=== PATIENT | female | born 1990 | race Caucasian/White ===

== ENCOUNTER 2018-03-12 16:09 | Emergency (ER) | payer BC ==
[2018-03-12] MEDS ORDERED: LOPERAMIDE 2 MG CAPSULE PO STA ×2 (16:27→17:51)
[2018-03-12] MEDS ORDERED: SODIUM CHLORIDE 0.9% 1,000 ML IV ONE (16:27)
[2018-03-12] MEDS ORDERED: ONDANSETRON 4 MG/2 ML VIAL IVP STA (16:27)
[2018-03-12] MEDS ORDERED: KETOROLAC 60 MG/2 ML VIAL IVP STA (16:27)
--- NOTE | 2018-03-12 16:29 | ED Physician Documentation ---
PD HPI NVD - Stated complaint Stated Complaint: N/V ABD PX - History obtained from History obtained from: Patient, Family - History of Present Illness Timing - onset: Today (She got yesterday. She did not drink too much last night. She woke today with vomiting and diarrhea and stomach cramps. The vomiting is much worse than the diarrhea. Her sister had something similar and she was exposed to her about 5 days ago. No fevers. No recent travel.) Review of Systems Constitutional: denies: Fever Throat: denies: Dental pain / toothache, Sore throat Cardiac: denies: Chest pain / pressure, Palpitations Respiratory: denies: Dyspnea PD PAST MEDICAL HISTORY - Present Medications Home Medications: Ambulatory Orders Medication Instructions Recorded Confirmed Levothyroxine Sodium [Synthroid] 75 mcg PO 03/12/18 Liothyronine [Cytomel] 5 mcg PO QDAC 03/12/18 03/12/18 Loperamide [Imodium] 2 mg PO QID PRN #10 capsule 03/12/18 Ondansetron Odt [Zofran] 4 mg TL Q6H PRN #10 tablet 03/12/18 - Allergies Allergies/Adverse Reactions: Allergies Allergy/AdvReac Type Severity Reaction Status Date / Time No Known Drug Allergies Allergy Verified 03/12/18 16:29 PD ED PE NORMAL - Vitals Vital signs reviewed: Yes - General General: Alert and oriented X 3, No acute distress - HEENT HEENT: Pharynx benign - Cardiac Cardiac: RRR, No murmur - Respiratory Respiratory: No respiratory distress, Clear bilaterally - Abdomen Abdomen: Soft, Non tender - Neuro Neuro: Alert and oriented X 3, Normal speech Results - Vitals Vitals: Vital Signs - 24 hr 03/12/18 16:21 Temperature 36.8 C Heart Rate 60 Respiratory 16 Rate Blood Pressure 100/71 O2 Saturation 100 Oxygen O2 Source Room air - Labs Labs: Laboratory Tests 03/12/18 03/12/18 03/12/18 16:30 16:30 17:30 WBC 7.7 RBC 4.82 Hgb 15.0 Hct 43.0 MCV 89.2 MCH 31.2 H MCHC 35.0 RDW 12.9 Plt Count 163 MPV 8.8 Neut # (Auto) 6.9 H Lymph # (Auto) 0.4 L [place] # (Auto) 0.3 Eos # (Auto) 0.0 Baso # (Auto) 0.0 Absolute Nucleated RBC 0.00 Nucleated RBC % 0.0 Sodium 134 L Potassium 3.4 L Chloride 101 Carbon Dioxide 24 Anion Gap 9.0 BUN 14 Creatinine 0.6 Estimated GFR (MDRD) 119 Glucose 106 H Calcium 9.0 Total Bilirubin 1.2 H AST 26 ALT 23 Alkaline Phosphatase 52 Total Protein 7.0 Albumin 4.4 Globulin 2.6 Albumin/Globulin Ratio 1.7 Lipase 33 Urine Color YELLOW Urine Clarity CLEAR Urine pH 8.0 H Ur Specific [place] 1.015 Urine Protein NEGATIVE Urine Glucose (UA) NEGATIVE Urine Ketones 40 H Urine Occult Blood NEGATIVE Urine Nitrite NEGATIVE Urine Bilirubin NEGATIVE Urine Urobilinogen 1 (NORMAL) Ur Leukocyte Esterase NEGATIVE Ur Microscopic Review NOT INDICATED Urine Culture Comments NOT INDICATED Urine HCG, Qual NEGATIVE PD MEDICAL DECISION MAKING - ED course ED course: 27-year-old woman with what sounds like clinical gastroenteritis. She has mild hyper orally and after the administration of IV fluids, Zofran, and Imodium she is feeling 100% better. - Sepsis Event Vital Signs: Vital Signs - 24 hr 03/12/18 16:21 Temperature 36.8 C Heart Rate 60 Respiratory 16 Rate Blood Pressure 100/71 O2 Saturation 100 Oxygen O2 Source Room air Departure - Departure Disposition: 01 Home, Self Care Clinical Impression: Gastroenteritis Condition: Good Record reviewed to determine appropriate education?: Yes Instructions: ED Gastroenteritis Viral Prescriptions: Loperamide [Imodium] 2 mg PO QID PRN #10 capsule PRN Reason: Diarrhea Ondansetron Odt [Zofran] 4 mg TL Q6H PRN #10 tablet PRN Reason: Nausea / Vomiting Comments: As discussed, you should be better in 12-18 hours. If worsening or if not better in that timeframe please return for reevaluation.
[2018-03-12 16:42] LABS: BASOPHILS % (AUTO) 0.3 %; EOSINOPHILS % (AUTO) 0.4 %; LYMPHOCYTES # (AUTO) 0.4 10^3/uL (1.5-3.5); LYMPHOCYTES % (AUTO) 5.4 %; MEAN CORPUSCULAR HEMOGLOBIN 31.2 pg (27.0-31.0); MEAN CORPUSCULAR VOLUME 89.2 fL (81.0-99.0); MEAN PLATELET VOLUME 8.8 fL (7.9-10.8); MONOCYTES # (AUTO) 0.3 10^3/uL (0.0-1.0); MONOCYTES % (AUTO) 3.9 %; NEUTROPHILS # (AUTO) 6.9 10^3/uL (1.5-6.6); PLT - PLATELET COUNT 163 10^3/uL (130-450); RED BLOOD COUNT 4.82 10^6/uL (4.20-5.40); RED CELL DISTRIBUTION WIDTH 12.9 % (12.0-15.0); WHITE BLOOD COUNT 7.7 x10^3/uL (4.8-10.8)
[2018-03-12 16:56] LABS: ALBUMIN 4.4 g/dL (3.2-5.5); ALBUMIN/GLOBULIN RATIO 1.7 (1.0-2.2); BILIRUBIN,TOTAL 1.2 mg/dL (0.2-1.0); CREATININE 0.6 mg/dL (0.4-1.0)
[2018-03-12] MEDS ORDERED: POTASSIUM BICARB 25 MEQ TABLET PO STA (17:02)
[2018-03-12 17:40] LABS: BILIRUBIN,URINE NEGATIVE (NEGATIVE); GLUCOSE, URINE (UA) NEGATIVE (NEGATIVE); KETONES,URINE (UA) 40 mg/dL (NEGATIVE); LEUKOCYTE ESTERASE, URINE NEGATIVE (NEGATIVE); NITRITE,URINE NEGATIVE (NEGATIVE); OCCULT BLOOD,URINE NEGATIVE (NEGATIVE); PROTEIN,URINE NEGATIVE (NEGATIVE); UROBILINOGEN,URINE 1 (NORMAL) E.U./dL (NORMAL)
[2018-03-12 17:45] LABS: CLARITY,URINE CLEAR (CLEAR); HCG UR QUAL NEGATIVE
[2018-03-12] MEDS ORDERED: ONDANSETRON ODT 4 MG Prepack 2 TL STA (17:51)
[2018-03-12 18:06] VITALS: BP 119/70
== END 2018-03-12 18:10 | disposition home or self-care (01) ==
LOC: ED 16:09
DX: K52.9 Noninfective gastroenteritis and colitis, unspecified (principal)
CPT/HCPCS: 36415; 80053; 81003; 81025; 83690; 85025; 96361; 96374; 96375; 99283; A9270; 81001; 87086